=== PATIENT | female | born 1950 | race Caucasian/White ===

== ENCOUNTER 2018-09-01 23:01 | Inpatient (IN) | payer MEDICARE ==
[~2018-09-01] VITALS: Ht 152.4 cm; Wt 118.0 kg
[~2018-09-01 23:01] MED LIST: AMLO5TAB9 PO; LORA0.5T2 PO; QUET100T70 PO; VALS320T16 PO
[2018-09-01 23:25] LABS: BASOPHILS % (AUTO) 0.2 % (0.0-5.0); EOSINOPHILS % (AUTO) 0.8 % (0.0-8.0); HEMATOCRIT 27.9 % (36-48); LYMPHOCYTES % (AUTO) 14.1 % (21.0-51.0); MEAN CORPUSCULAR HEMOGLOBIN 32.6 pg (27.0-33.0); MEAN CORPUSCULAR HGB CONC 36.9 g/dL (32.0-36.0); MEAN CORPUSCULAR VOLUME 88.3 fL (79-99); MONOCYTES % (AUTO) 11.8 % (3.0-13.0); NEUTROPHILS % (AUTO) 73.1 % (40.0-77.0); NUCLEATED RED BLOOD CELLS 0.1 % (0.0-0.19); PLATELET COUNT (AUTO) 179 K/uL (130-400); RED BLOOD CELL COUNT(AUTO) 3.15 MIL/uL (4.00-5.50); RED CELL DISTRIBUTION WIDTH 13.4 % (11.0-15.5); WHITE BLOOD COUNT (AUTO) 5.1 K/uL (4.8-10.8)
[2018-09-01 23:42] LABS: APPEARANCE,URINE Clear (CLEAR); BILIRUBIN,URINE Negative (NEGATIVE); COLOR,URINE Yellow (YELLOW); GLUCOSE, URINE (UA) Negative (NEGATIVE); KETONES,URINE Negative (NEGATIVE); LEUKOCYTE ESTERASE ,URINE Negative (NEGATIVE); NITRATE,URINE Negative (NEGATIVE); OCCULT BLOOD,URINE Negative (NEGATIVE); PROTEIN,URINE Negative (NEGATIVE)
[2018-09-01 23:46] LABS: ALBUMIN 3.4 g/dL (3.5-5.0); BILIRUBIN,TOTAL 0.5 mg/dL (0.2-1.0); CREATININE 1.2 mg/dL (0.5-1.5); POTASSIUM 3.3 mmol/L (3.5-5.1)
[2018-09-01 23:50] LABS: THYROID STIMULATING HORMONE 0.82 uIU/mL (0.36-3.74)
[2018-09-02] VITALS (8 sets, daily range): BP systolic 104–177; BP diastolic 55–83
[2018-09-02] MEDS ORDERED: IOHEXOL-350 75 ML VIAL IV ONE (00:06)
[2018-09-02 01:01] LABS: AMPHET/METH SCREEN,URINE NEGATIVE (NEGATIVE); BARBITURATE SCREEN, URINE NEGATIVE (NEGATIVE); BENZODIAZEPINES SCREEN,URINE NEGATIVE (NEGATIVE); CANNABINOID SCREEN,URINE NEGATIVE (NEGATIVE); COCAINE SCREEN,URINE POSITIVE (NEGATIVE); OPIATE SCREEN,URINE NEGATIVE (NEGATIVE); PHENCYCLIDINE SCREEN,URINE NEGATIVE (NEGATIVE)
--- NOTE | 2018-09-02 01:45 | NUR ---
REPORT RECEIVED FROM DIANNE REYEZ
--- NOTE | 2018-09-02 02:00 | NUR ---
PT ARRIVED TO UNIT. PT IS STABLE. NO SOB. MINIMAL PAIN STATED TO ABD AREA. PT ABLE TO STATE CONCERNS. AAO3. PERRLA. REQUIRES ASSISTANCE TO TRANSFER. STATES HAS PROVIDER 3 TIMES A WEEK. HAS REFUSED SHOWERS AND STATES LAST BATH/SHOWER WAS 3 MONTHS AGO. PERINEAL AREA NOTED TO BE VERY RED AND SWOLLEN. IRRITATION NOTED. WHITE RESIDUE NOTED ON FOLD, AND VAGINAL AREA. CLEANSED PROPERLY AND BARRIER CREAM WAS APPLIED. TOWELS PLACED UNDER FOLDS TO DECREASE MOISTURE. LAST BM 09/01. STATED URINARY RETENTION NOTED, CASTELAN CATH [address]. PALE YELLOW URINE NOTED. NS AT 150ML/HR. PT HOME MEDICATIONS AT HOME. STATES WILL BRING IN THE AM. DRY SKIN NOTED TO FEET. MINIMAL EDEMA NOTED TO LOWER EXTREMITIES.
[2018-09-02] MEDS: SODIUM CHLORIDE 0.9% 1000ML 1,000 ML IV SCH ×3 (03:26→14:54)
[2018-09-02] MEDS: ACETAMINOPHEN 325 MG TAB PO PRN ×3 (07:27→17:37)
[2018-09-02] MEDS: THIAMINE HCL 100 MG TABLET PO SCH (07:45)
[2018-09-02] MEDS: PANTOPRAZOLE SODIUM 40 MG TABLET.DR PO SCH (07:45)
[2018-09-02 08:19] LABS: HEMATOCRIT 28.8 % (36-48); MEAN CORPUSCULAR HEMOGLOBIN 31.9 pg (27.0-33.0); MEAN CORPUSCULAR HGB CONC 35.8 g/dL (32.0-36.0); PLATELET COUNT (AUTO) 189 K/uL (130-400); RED BLOOD CELL COUNT(AUTO) 3.23 MIL/uL (4.00-5.50); RED CELL DISTRIBUTION WIDTH 13.3 % (11.0-15.5); WHITE BLOOD COUNT (AUTO) 4.8 K/uL (4.8-10.8)
[2018-09-02 08:52] LABS: CREATININE 1.1 mg/dL (0.5-1.5)
[2018-09-02] MEDS ORDERED: LACTULOSE 20 GM/30 ML UDCUP PO PRN (09:00)
[2018-09-02 09:05] LABS: BASOPHILS % (MANUAL) 1 % (0-2); EOSINOPHILS % (MANUAL) 2 % (1-6); LYMPHOCYTES % (MANUAL) 7 % (22-44); MONOCYTES % (MANUAL) 8 % (2-9); SEGMENTED NEUTROPHILS % 82 % (40-70)
[2018-09-02 09:06] LABS: MAN.DIFF COMMENT-IMPRESSION MANUAL DIFFERENTIAL; PLATELET MORPHOLOGY COMMENT ADEQUATE
[2018-09-02] MEDS ORDERED: LACTULOSE 20 GM/30 ML UDCUP ONE (09:37)
[2018-09-02] MEDS ORDERED: HYDR-4068 PO (11:08)
[2018-09-02] MEDS ORDERED: LISI1TAB13 PO (11:08)
[2018-09-02] MEDS ORDERED: FLUO40CA49 PO (11:08)
[2018-09-02] MEDS ORDERED: QUET200T58 PO (11:08)
[2018-09-02] MEDS ORDERED: AMLO10TA4 PO (11:08)
[2018-09-02] MEDS: ONDANSETRON HCL 4 MG/2 ML VIAL IVP PRN (12:55)
--- NOTE | 2018-09-02 13:50 | NUR ---
INITIAL SPOKE to pt, alone, aaox3, c/o headache, admit for hyponatremia; states lives with spouse, ambulates w rolling walker and cane, no other dme, no hh/provider services, states her plan is to go home . spouse to provide transport. CM to follow for MD recommendation
--- NOTE | 2018-09-02 14:05 | NUR ---
INITIAL NOTE CONTINUED PT STATES NO HH OR PROVIDER SERVICES, HAS SOME MOBILITY ISSUES BUT IS INDP W ADLS Addendum: 09/02/18 at 1935 by GUALBERTO ROMAN RN CM Amended: Links added.
[2018-09-02] MEDS ORDERED: POTASSIUM CHLORIDE 10% ELIXIR 20 MEQ/15 ML UDCUP PO PRN (17:45)
[2018-09-02] MEDS: NS-20 MEQ KCL 1000ML 1,000 ML IV SCH (18:10)
[2018-09-02] MEDS: POTASSIUM CHLORIDE 20MEQ/100ML 100 ML IV PRN (18:14)
[2018-09-02] MEDS: LIDOCAINE HCL-MPF 1% 2ML VIAL IVP PRN (18:14)
--- NOTE | 2018-09-02 22:00 | NUR ---
PT CONTINUES ON IV FLUIDS. 100ML/HR. POTASSIUM RUNNING. NO DISTRESS NOTED. EYES CLOSED. NO PAIN STATED.
[2018-09-03 03:50] LABS: HEMATOCRIT 28.6 % (36-48); MEAN CORPUSCULAR HEMOGLOBIN 32.9 pg (27.0-33.0); MEAN CORPUSCULAR HGB CONC 36.6 g/dL (32.0-36.0); MEAN CORPUSCULAR VOLUME 89.9 fL (79-99); PLATELET COUNT (AUTO) 186 K/uL (130-400); RED BLOOD CELL COUNT(AUTO) 3.19 MIL/uL (4.00-5.50); RED CELL DISTRIBUTION WIDTH 13.4 % (11.0-15.5); WHITE BLOOD COUNT (AUTO) 4.8 K/uL (4.8-10.8)
[2018-09-03 04:06] LABS: CREATININE 0.8 mg/dL (0.5-1.5); MAGNESIUM 1.8 mg/dL (1.80-2.40); POTASSIUM 3.4 mmol/L (3.5-5.1); URIC ACID 5.5 mg/dL (2.6-7.2)
[2018-09-03 04:11] VITALS: BP 148/77
--- NOTE | 2018-09-03 05:00 | NUR ---
PT STATES HAS SEVERE NAUSEA. NO EMESIS AT THE MOMENT. ZOFRAN PRN GIVEN VIA IV. STATED HAVING SIMILAR EPISODES DURING THE DAY. ICE PACK GIVEN. PT ALSO REFUSING BATH AT THIS TIME, DUE TO NOT FEELING WELL. STATED WOULD REQUEST ONE ONCE SHE FEELS MUCH BETTER TO HAVE A BEDBATH.
[2018-09-03] MEDS: NS-20 MEQ KCL 1000ML 1,000 ML IV SCH (05:02)
[2018-09-03 05:04] LABS: BAND NEUTROPHILS % (MANUAL) 3 % (0-2); EOSINOPHILS % (MANUAL) 2 % (1-6); LYMPHOCYTES % (MANUAL) 11 % (22-44); MONOCYTES % (MANUAL) 10 % (2-9); SEGMENTED NEUTROPHILS % 74 % (40-70)
[2018-09-03 05:05] LABS: MAN.DIFF COMMENT-IMPRESSION MANUAL DIFFERENTIAL; PLATELET MORPHOLOGY COMMENT ADEQUATE
[2018-09-03] MEDS: ONDANSETRON HCL 4 MG/2 ML VIAL IVP PRN (05:07)
[2018-09-03] MEDS: LIDOCAINE HCL-MPF 1% 2ML VIAL IVP PRN (05:22)
[2018-09-03] MEDS: POTASSIUM CHLORIDE 20MEQ/100ML 100 ML IV PRN (05:22)
[2018-09-03 07:58] VITALS: BP 150/72
[2018-09-03] MEDS: PANTOPRAZOLE SODIUM 40 MG TABLET.DR PO SCH (08:56)
[2018-09-03] MEDS: QUETIAPINE FUMARATE 100 MG TAB PO SCH (08:56)
[2018-09-03] MEDS: AMLODIPINE BESYLATE 5 MG TAB PO SCH (08:56)
[2018-09-03] MEDS: THIAMINE HCL 100 MG TABLET PO SCH (08:56)
[2018-09-03] MEDS: POTASSIUM CHLORIDE 20 MEQ ERTAB PO PRN (08:57)
[2018-09-03 11:48] VITALS: BP 137/69
[2018-09-03 16:21] VITALS: BP 137/66
[2018-09-03 19:10] VITALS: BP 129/66
[2018-09-03 23:02] VITALS: BP 112/63
[2018-09-04 03:18] VITALS: BP 124/55
[2018-09-04 03:46] LABS: HEMATOCRIT 28.9 % (36-48); MEAN CORPUSCULAR HEMOGLOBIN 31.8 pg (27.0-33.0); MEAN CORPUSCULAR HGB CONC 35.2 g/dL (32.0-36.0); MEAN CORPUSCULAR VOLUME 90.5 fL (79-99); PLATELET COUNT (AUTO) 219 K/uL (130-400); RED CELL DISTRIBUTION WIDTH 13.5 % (11.0-15.5); WHITE BLOOD COUNT (AUTO) 4.9 K/uL (4.8-10.8)
[2018-09-04 03:56] LABS: CREATININE 0.9 mg/dL (0.5-1.5); MAGNESIUM 1.8 mg/dL (1.80-2.40); POTASSIUM 3.3 mmol/L (3.5-5.1)
[2018-09-04] MEDS: ONDANSETRON HCL 4 MG/2 ML VIAL IVP PRN (04:23)
[2018-09-04 07:53] VITALS: BP 138/67
[2018-09-04] MEDS: QUETIAPINE FUMARATE 100 MG TAB PO SCH (09:49)
[2018-09-04] MEDS: PANTOPRAZOLE SODIUM 40 MG TABLET.DR PO SCH (09:49)
[2018-09-04] MEDS: THIAMINE HCL 100 MG TABLET PO SCH (09:49)
[2018-09-04] MEDS: AMLODIPINE BESYLATE 5 MG TAB PO SCH (09:49)
[2018-09-04] MEDS: POTASSIUM CHLORIDE 20 MEQ ERTAB PO PRN ×3 (09:50→13:46)
[2018-09-04 11:44] VITALS: BP 147/69
[2018-09-04 16:19] VITALS: BP 116/60
[2018-09-04 19:31] VITALS: BP 108/53
[2018-09-04 23:42] VITALS: BP 136/69
[2018-09-05] MEDS: ACETAMINOPHEN 325 MG TAB PO PRN (02:53)
[2018-09-05 03:24] VITALS: BP 135/70
[2018-09-05 04:31] LABS: HEMATOCRIT 30.5 % (36-48); MEAN CORPUSCULAR HEMOGLOBIN 32.8 pg (27.0-33.0); MEAN CORPUSCULAR HGB CONC 35.9 g/dL (32.0-36.0); MEAN CORPUSCULAR VOLUME 91.3 fL (79-99); PLATELET COUNT (AUTO) 211 K/uL (130-400); RED BLOOD CELL COUNT(AUTO) 3.34 MIL/uL (4.00-5.50); RED CELL DISTRIBUTION WIDTH 13.5 % (11.0-15.5); WHITE BLOOD COUNT (AUTO) 5.2 K/uL (4.8-10.8)
[2018-09-05 04:45] LABS: CREATININE 1.1 mg/dL (0.5-1.5); POTASSIUM 4.3 mmol/L (3.5-5.1)
[2018-09-05] MEDS: THIAMINE HCL 100 MG TABLET PO SCH (07:28)
[2018-09-05] MEDS: AMLODIPINE BESYLATE 5 MG TAB PO SCH (07:28)
[2018-09-05] MEDS: QUETIAPINE FUMARATE 100 MG TAB PO SCH (07:28)
[2018-09-05] MEDS: PANTOPRAZOLE SODIUM 40 MG TABLET.DR PO SCH (07:28)
[2018-09-05 07:30] VITALS: BP 125/67
--- NOTE | 2018-09-05 08:00 | NUR ---
ASSESSMENT PT IS AAOX4 DENIES CP DENIES SOB DENIES SOB DENIES NV. NO COMPLAINTS SITTING UPRIGHT IN BED. AM MEDS TAKEN, CALL LIGHT WITHIN REACH.
[2018-09-05 11:11] VITALS: BP 118/61
--- NOTE | 2018-09-05 13:00 | NUR ---
DR SOLORIO ROUNDED ORDERS RECEIVED
[2018-09-05 15:06] VITALS: BP 126/55
--- NOTE | 2018-09-05 15:39 | NUR ---
REFUSED CASTELAN TO COME OUT AT THIS TIME STATES ITS PAINFUL. PAGED DR SOLORIO. AWAITING CALL BACK.
--- NOTE | 2018-09-05 16:00 | NUR ---
DR SOLORIO CALLED BACK ORDERS RECEIVED TO DIANE CASTELAN TOMORROW 4 AM
[2018-09-05 19:00] VITALS: BP 134/57
--- NOTE | 2018-09-05 20:00 | NUR ---
PATIENT RESTING IN BED. DENIES CHEST PAIN OR SOB. CURRENTLY USING 2L OF 02 VIA NC. PATIENT HAS A CASTELAN DRAINING CLEAR YELLOW URINE. NO PAIN WITH URINATION. PATIENT HAS REDNESS/ EXCORIATION TO ABDOMINAL FOLDS. PATIENT HAS WHITE THICK DISCHARGE IN MARJORIE AREA. PATIENT IS REFUSING MARJORIE CARE. INFORMED PATIENT CASTELAN WILL BE REMOVED IN AM AND PATIENT WILL BATHE POST CASTELAN REMOVAL. PATIENT AGREED.
[2018-09-05 23:00] VITALS: BP 124/59
[2018-09-06 03:00] VITALS: BP 139/68
[2018-09-06 03:30] LABS: HEMATOCRIT 30.1 % (36-48); MEAN CORPUSCULAR HEMOGLOBIN 32.2 pg (27.0-33.0); MEAN CORPUSCULAR HGB CONC 35.6 g/dL (32.0-36.0); MEAN CORPUSCULAR VOLUME 90.5 fL (79-99); PLATELET COUNT (AUTO) 240 K/uL (130-400); RED BLOOD CELL COUNT(AUTO) 3.33 MIL/uL (4.00-5.50); RED CELL DISTRIBUTION WIDTH 13.5 % (11.0-15.5); WHITE BLOOD COUNT (AUTO) 5.7 K/uL (4.8-10.8)
[2018-09-06 03:41] LABS: ALBUMIN 3.1 g/dL (3.5-5.0); BILIRUBIN,TOTAL 0.3 mg/dL (0.2-1.0); CREATININE 0.7 mg/dL (0.5-1.5); POTASSIUM 4.1 mmol/L (3.5-5.1); URIC ACID 5.3 mg/dL (2.6-7.2)
[2018-09-06 03:53] LABS: % IRON SATURATION 21.7 % (22-44)
--- NOTE | 2018-09-06 04:45 | NUR ---
CASTELAN CATHETER REMOVED AT 0445.
[2018-09-06] MEDS: PANTOPRAZOLE SODIUM 40 MG TABLET.DR PO SCH (07:13)
[2018-09-06] MEDS: QUETIAPINE FUMARATE 100 MG TAB PO SCH (07:13)
[2018-09-06] MEDS: THIAMINE HCL 100 MG TABLET PO SCH (07:13)
[2018-09-06] MEDS: AMLODIPINE BESYLATE 5 MG TAB PO SCH (07:13)
[2018-09-06 07:41] VITALS: BP 126/59
--- NOTE | 2018-09-06 07:45 | NUR ---
ASSESSMENT PT IS AAOX3 DENIES CP DENIES SOB DENIES NV NO COMPLAINTS DENIES PAIN. STATES SHE HAS VOIDED ALREADY SINCE CASTELAN WAS DC. DENIES BURNING OR URGENCY. AM MEDS GIVEN. CALL LIGHT WITHIN REACH.
[2018-09-06 11:12] VITALS: BP 108/48
--- NOTE | 2018-09-06 12:10 | NUR ---
STATUS UP TO CHAIR. NO COMPLAINTS, EATING LUNCH. CALL LIGHT WITHIN REACH.
[2018-09-06 15:30] VITALS: BP 137/93
--- NOTE | 2018-09-06 16:00 | NUR ---
PAGED DR SOLORIO REGARDING POSSIBLE ORDER FOR SODIUM TABLETS CALLED BACK. NO SODIUM TABLETS ORDERED FOR PATIENT. STATES SODIUM WILL CORRECT ITSELF. PLAN DC HOME TOMORROW.
--- NOTE | 2018-09-06 17:25 | NUR ---
Status Patient resting in bed tolerated dinner, no complaints, call light within reach.
[2018-09-06 19:00] VITALS: BP 119/68
[2018-09-06 23:00] VITALS: BP 148/73
[2018-09-07 03:00] VITALS: BP 124/58
--- NOTE | 2018-09-07 03:08 | NUR ---
BATH AND ROACHES PATIENT RESTING IN BED. DENIES PAIN OR SOB. PATIENT BEGAN YELLING HELP. UPON ENTERING THE ROOM CALL WAS WITHIN REACH OF LEFT ARM AND HAND. PATIENT STATED SHE URINATED ALL OVER THE ENTIRE BED. COIN ROLLING MACHINE OPERATOR ASSISTED PATIENT TO BATHE. ROACHES SEEN IN PATIENT'S ROOM. ROACHES ARE FROM PATIENT'S BELONGINGS. UNABLE TO MOVE PATIENT AT THIS TIME. HER LAST ROOM IS FILLED WITH ROACHES AND THERE ARE NO ROOMS AVAILABLE. WORK ORDER IN PLACE FOR ROACHES.
[2018-09-07 04:35] LABS: HEMATOCRIT 30.3 % (36-48); MEAN CORPUSCULAR HEMOGLOBIN 32.6 pg (27.0-33.0); MEAN CORPUSCULAR HGB CONC 35.1 g/dL (32.0-36.0); MEAN CORPUSCULAR VOLUME 92.9 fL (79-99); NUCLEATED RED BLOOD CELLS 0.1 % (0.0-0.19); PLATELET COUNT (AUTO) 224 K/uL (130-400); RED BLOOD CELL COUNT(AUTO) 3.26 MIL/uL (4.00-5.50); RED CELL DISTRIBUTION WIDTH 13.7 % (11.0-15.5); WHITE BLOOD COUNT (AUTO) 6.5 K/uL (4.8-10.8)
[2018-09-07 04:43] LABS: CREATININE 1.4 mg/dL (0.5-1.5); POTASSIUM 3.8 mmol/L (3.5-5.1)
[2018-09-07 07:58] VITALS: BP 134/70
[2018-09-07] MEDS: AMLODIPINE BESYLATE 5 MG TAB PO SCH (09:53)
[2018-09-07] MEDS: THIAMINE HCL 100 MG TABLET PO SCH (09:54)
[2018-09-07] MEDS: QUETIAPINE FUMARATE 100 MG TAB PO SCH (09:54)
[2018-09-07] MEDS: PANTOPRAZOLE SODIUM 40 MG TABLET.DR PO SCH (09:54)
[2018-09-07 12:08] VITALS: BP 133/56
--- NOTE | 2018-09-07 14:00 | NUR ---
Nutrition Intervention: Nutrition screen based on LOS x 5 days. Pt. admitted with Dx of Hyponatremia, Hypokalemia. Pt. on Heart Healthy diet with good p.o. intake. Labs reviewed(Alb 3.1, Na 122, Cl 86). Noted sodium level improving. LBM: 09/03/18. Pt. on lactulose for lower GI distress. SR-19, elastic. BMI: 29, overweight. Pt. refused Heart Healthy diet education. Pt. stated 'I already know that'. Recommendations: 1) Rec. 1500ml Fluid Restriction. 2) Continue to monitor pt's nutritional status. 3) Consult RD as nutrition concerns arise. Addendum: 09/07/18 at [address] Amended: Links added.
[2018-09-07 15:50] VITALS: BP 116/63
== END 2018-09-07 18:11 | DRG 918 ==
LOC: EDH 23:01 → EDHIP 09-02 00:55 → 2AH 09-02 02:23 → 2DH 09-05 02:35
PROVIDERS: ADMIT Internal Medicine Nephrology; ATTEND Internal Medicine Nephrology
DX: T50.901A Poisoning by unspecified drugs, medicaments and biological substances, accidental (unintentional), initial encounter (principal); E87.1 Hypo-osmolality and hyponatremia; Z68.43 Body mass index [BMI] 50.0-59.9, adult; E87.6 Hypokalemia; K59.03 Drug induced constipation; E66.9 Obesity, unspecified; D64.9 Anemia, unspecified; F32.9 Major depressive disorder, single episode, unspecified; G89.29 Other chronic pain; I10 Essential (primary) hypertension; M19.90 Unspecified osteoarthritis, unspecified site; N28.9 Disorder of kidney and ureter, unspecified; Z91.19 Patient's noncompliance with other medical treatment and regimen
CPT/HCPCS: 36415; 71045; 74177; 80048; 80053; 80305; 81003; 82533; 82550; 82728; 83540; 83550; 83605; 83690; 83735; 83880; 83930; 83935; 84300; 84443; 84484; 84550; 85025; 85027; 93005; 97039; G0378; G0480; J2405; J3480; J3490; J7030; Q9967